=== PATIENT | male | born 1955 | race Caucasian/White ===

== ENCOUNTER 2024-05-05 10:14 | Emergency (ER) | payer BC ==
[2024-05-05] MEDS: NEOSTIGMINE 1 MG/1 ML 10 ML MDV IM STA ×2 (12:51→14:54)
[2024-05-05] MEDS: SALINE ENEMA 133 ML BOTTLE RC STA (12:52)
[2024-05-05] MEDS: MINERAL OIL ENEMA 133 ML BOTTLE RC STA (12:52)
[2024-05-05] MEDS: SOAP SUDS ENEMA 1 EACH RC ONE (14:03)
[2024-05-05 15:03] VITALS: BP 154/95; O2SAT 99
--- NOTE | 2024-05-05 15:40 | ED Physician Documentation ---
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 He states he felt like his rectum is "full". He is usually on laxatives but states he was having normal bowel movements though he stopped taking them. He is on oxycodone for pain. He went to [facility] in [place] approximately 3 weeks ago for same and received multiple enemas before he finally had a bowel movement. No vomiting. No abdominal pain. Nothing makes it better or worse. Review of Systems Constitutional: denies: Fever, Chills Ears: denies: Ear pain Nose: denies: Rhinorrhea / runny nose, Congestion GI: denies: Vomiting PD PAST MEDICAL HISTORY - Past Medical History Past Medical History: Yes Other Past Medical History: throat cancer - Past Surgical History Past Surgical History: Yes - Present Medications Home Medications: Ambulatory Orders Medication Instructions Recorded Confirmed polyethylene glycoL 3350(BULK) 17 gm PO DAILY PRN #1 each 05/05/24 [Miralax] - Allergies Allergies/Adverse Reactions: Allergies Allergy/AdvReac Type Severity Reaction Status Date / Time No Known Drug Allergies Allergy Verified 05/05/24 10:35 - Social History Does the pt smoke?: No Smoking Status: Never smoker Does the pt drink ETOH?: No Does the pt have substance abuse?: No - Immunizations Immunizations are current?: Yes PD ED PE NORMAL - Vitals Vital signs reviewed: Yes - General General: Alert and oriented X 3, No acute distress - HEENT HEENT: Moist mucous membranes - Neck Neck: Supple, no meningeal sign - Cardiac Cardiac: RRR, Strong equal pulses - Respiratory Respiratory: No respiratory distress, Clear bilaterally - Abdomen Abdomen: Soft, Non tender, Non distended - Derm Derm: Warm and dry - Neuro Neuro: Alert and oriented X 3 - Psych Psych: Normal mood, Normal affect Results - Vitals Vitals: Vital Signs - 24 hr 05/05/24 05/05/24 10:29 14:54 Temperature 36.7 C Heart Rate 79 90 Respiratory 16 18 Rate Blood Pressure 138/80 H 154/95 H O2 Saturation 98 99 Oxygen O2 Source Room air PD Medical Decision Making - ED course Complexity details: reviewed results, re-evaluated patient, considered differential, d/w patient ED course: 69-year-old male with constipation. Was given multiple enemas as well as neostigmine 1 mg IM x 2. Finally had a bowel movement in the emergency department and feels that his rectal pain is better. Will place on MiraLAX for home. Will have him follow-up with his doctor for further care. No evidence of bowel obstruction. No indication for emergent imaging. Patient counseled regarding signs and symptoms for which I believe and urgent re-evaluation would be necessary. Patient with good understanding of and agreement to plan and is comfortable going home at this time This document was made in part using voice recognition software. While efforts are made to proofread this document, sound alike and grammatical errors may occur. Departure - Departure Disposition: 01 Home, Self Care Clinical Impression: Constipation Qualifiers: Constipation type: unspecified constipation type Qualified Code(s): K59.00 - Constipation, unspecified Condition: Good Instructions: ED Constipation Follow-Up: DARON RODRIGUEZ ND [Primary Care Provider] - Within 1 week Prescriptions: polyethylene glycoL 3350(BULK) [Miralax] 17 gm PO DAILY PRN #1 each PRN Reason: Constipation Comments: Your prescription was sent to [facility] in [place]. Please follow-up with your doctor for further care. Please return if you worsen. Forms: PCP List Discharge Date/Time: 05/05/24 15:45
== END 2024-05-05 15:45 | disposition home or self-care (01) ==
LOC: ED 10:14
DX: K59.00 Constipation, unspecified (principal)
CPT/HCPCS: 96372; 99283; 99284; A9270

== ENCOUNTER 2024-07-08 15:58 | Outpatient (CLI) | payer BC ==
[2024-07-08 16:36] LABS: CREATININE 0.9 mg/dL (0.6-1.3)
== END 2024-07-08 15:59 | disposition home or self-care (01) ==
LOC: LAB 15:58
PROVIDERS: ATTEND Specialist
DX: Z08 Encounter for follow-up examination after completed treatment for malignant neoplasm (principal); Z85.818 Personal history of malignant neoplasm of other sites of lip, oral cavity, and pharynx
CPT/HCPCS: 36415; 82565; 84520